=== PATIENT | female | born 1970 | race Caucasian/White ===

== ENCOUNTER → 2017-06-10 | Day surgery (SDC) | payer OTHER ==
[~2017-06-10] MED LIST: HYDROmorphone 2 MG/ML VIAL IV; LIDOCAINE 1% PF 2 ML VIAL. ID; LIDOCAINE 2% PF Vial for OR 5 ML VIAL.; MORPHINE SULFATE 2 MG/ML DISP.SYRIN. IV; ONDANSETRON PF 4 MG/2 ML VIAL. IV; PROCHLORPERAZINE 10 MG/2 ML VIAL. IV; PROPOFOL 20 ML IV; fentaNYL PF VIAL 100 MCG/2 ML VIAL IV
[2017-06-10] MEDS: IV RINGERS,LACTATED 1000ML 1,000 ML IV (12:04)
== END | disposition home or self-care (01) ==
LOC: ENDOS 11:13
DX: K29.50 Unspecified chronic gastritis without bleeding (principal); K21.9 Gastro-esophageal reflux disease without esophagitis; G40.909 Epilepsy, unspecified, not intractable, without status epilepticus; E66.9 Obesity, unspecified; Z90.710 Acquired absence of both cervix and uterus; E03.9 Hypothyroidism, unspecified; M19.90 Unspecified osteoarthritis, unspecified site; F17.210 Nicotine dependence, cigarettes, uncomplicated; Z85.828 Personal history of other malignant neoplasm of skin; Z98.890 Other specified postprocedural states; Z90.49 Acquired absence of other specified parts of digestive tract
CPT/HCPCS: 43235; J2704

== ENCOUNTER → 2017-12-24 | Outpatient (CLI) | payer OTHER | END | disposition home or self-care (01) | LOC: NM 10:40 | DX: R10.84 Generalized abdominal pain (principal); R14.0 Abdominal distension (gaseous); E03.9 Hypothyroidism, unspecified | CPT/HCPCS: 78264; A9541 ==